=== PATIENT | male | born 1980 | race Caucasian/White ===

== ENCOUNTER 2017-05-31 18:06 | Emergency (ER) | payer OTHER ==
[~2017-05-31] VITALS: Ht 188 cm; Wt 81.6 kg
[~2017-05-31 18:06] MED LIST: AMOXIL500 M1 PO; ATARAX PO; BACTRIM DS TABL1 TA1 PO; CUBICIN IV; IBUPROFEN800 MG PO; LORCET 10-6501 EACH PO; METHADONE PO; METRONIDAZOLE250 MG PO; MOBIC PO; NAPROXEN PO; NO MEDICATIONS; PERCOCET 5-3251 TAB PO; SODIUM CHLORIDE10 ML IV; TYLENOL #3 PO; VICODIN 5/1 TAB 5/50 PO
== END 2017-05-31 20:30 | disposition home or self-care (01) ==
LOC: CED 18:06 → CFTX 18:06
DX: K04.7 Periapical abscess without sinus (principal); K02.9 Dental caries, unspecified; F17.210 Nicotine dependence, cigarettes, uncomplicated
CPT/HCPCS: 99283